=== PATIENT | female | born 2000 | race Two or more races ===

== ENCOUNTER 2022-08-25 16:29 | Emergency (ER) | payer MEDICAID, OTHER ==
[2022-08-25 16:42] VITALS: BP 115/74
[2022-08-25] MEDS ORDERED: TETRACAINE HCL 0.5% OPTH(EYE) SOLN 4ML LEFTEYE ONE (18:30)
[2022-08-25] MEDS ORDERED: FLUORESCEIN SOD OPTH TEST STRIP OP ONE (18:30)
[2022-08-25] MEDS ORDERED: CIPR0.3S67 OP ×3 (18:41→18:57)
== END 2022-08-25 19:00 | disposition home or self-care (01) ==
LOC: ER 16:29
DX: S05.02XA Injury of conjunctiva and corneal abrasion without foreign body, left eye, initial encounter (principal); Z88.1 Allergy status to other antibiotic agents; X58.XXXA Exposure to other specified factors, initial encounter; Y93.89 Activity, other specified; Y92.89 Other specified places as the place of occurrence of the external cause; Y99.8 Other external cause status